=== PATIENT | female | born 1995 | race Caucasian/White ===

== ENCOUNTER 2018-08-10 22:22 | Emergency (ER) | payer OTHER ==
[2018-08-10] MEDS ORDERED: CLINDAMYCIN HCL 150 MG CAP ONE (22:52)
[2018-08-10] MEDS ORDERED: HYDROCODONE/APAP 7.5/325 MG TAB ONE (22:52)
--- NOTE | 2018-08-10 22:52 | EDPHYS ---
Physician Documentation [facility] Name: Lucille Prasad Age: 23 yrs Sex: Female : 1995 Arrival Date: 08/10/2018 Time: 22:25 Bed 26 Private MD: Phil Deutsch ED Physician Nagi Zaragoza HPI: 08/10 22:44 This 23 yrs old Female presents to ER via Ambulatory with complaints of pkl Toothache. 22:44 The patient presents with broken tooth/teeth, pain, swelling, noticed pus from gum pkl while brushing teeth. Onset: The symptoms/episode began/occurred 5 day(s) ago. 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 - Social history:: Smoking status: Patient uses tobacco products, smokes one-half pack cigarettes per day. - Ebola Screening: : No symptoms or risks identified at this time. ROS: 22:44 Eyes: Negative for injury, pain, redness, and discharge. pkl 22:44 ENT: Positive for dental pain, of the lower right first molar. 22:44 Neck: Negative for stiffness. 22:44 Cardiovascular: Negative for chest pain. 22:44 Respiratory: Negative for cough, shortness of breath. 22:44 Abdomen/GI: Negative for abdominal pain, nausea, vomiting, and diarrhea. 22:44 Back: Negative for acute changes. 22:44 : Negative for urinary symptoms. 22:44 MS/extremity: Negative for acute changes. 22:44 Skin: Negative for rash. 22:44 Neuro: Negative for altered mental status. Exam: 22:44 Head/Face: Normocephalic, atraumatic. Eyes: Pupils equal round and reactive to light, pkl extra-ocular motions intact. Lids and lashes normal. Conjunctiva and sclera are non-icteric and not injected. Cornea within normal limits. Periorbital areas with no swelling, redness, or edema. 22:44 ENT: Dental exam: abscess, that is mild, specifically in the lower right first molar, dental caries, that is moderate. 22:44 Neck: Exam negative for acute changes. 22:44 Chest/axilla: Exam negative for acute changes. 22:44 Cardiovascular: Rate: normal, Rhythm: regular. 22:44 Respiratory: the patient does not display signs of respiratory distress, Respirations: normal, Breath sounds: are clear throughout. 22:44 Abdomen/GI: Bowel sounds: normal, Palpation: abdomen is soft and non-tender, in all quadrants. 22:44 Back: Exam negative for acute changes. 22:44 : Exam negative for acute changes. 22:44 Musculoskeletal/extremity: Exam is negative for acute changes. 22:44 Skin: Exam negative for rash. 22:44 Neuro: Orientation: is normal, Mentation: is normal, Cranial nerves: grossly normal, Motor: is normal. Vital Signs: 22:40 BP 123 / 93; Pulse 74; Resp 18; Temp 98.9; Pulse Ox 100% ; Weight 66.68 kg; Height 5 kr2 ft. 7 in. (170.18 cm); Pain 9/10; 22:40 Body Mass Index 23.02 (66.68 kg, 170.18 cm) kr2 MDM: 22:39 Patient medically screened. pkl 22:44 Data reviewed: vital signs, nurses notes. pkl Administered Medications: 22:50 Drug: [place] (7.5 mg-325 mg) 1 tabs Route: PO; mg2 23:05 Follow up: Response: No adverse reaction; Medication administered at discharge. mg2 22:50 Drug: Clindamycin 300 mg Route: PO; mg2 23:05 Follow up: Response: No adverse reaction; Medication administered at discharge. mg2 Disposition: 08/10/18 22:49 Discharged to Home. Impression: Dental abscess. - Condition is Stable. - Prescriptions for Clindamycin HCl 300 mg Oral Capsule - take 1 capsule by ORAL route every 6 hours for 10 days; 28 capsule. Ultram 50 mg Oral Tablet - take 1 tablet by ORAL route every 8 hours As needed; 20 tablet. - Medication Reconciliation Form, Thank You Letter, Antibiotic Education, Prescription Opioid Use form. - Follow up: Private Physician; When: 2 - 3 days; Reason: Re-evaluation by your physician. - Problem is new. - Symptoms have improved. Signatures: Nagi Zaragoza MD MD pkl Mayelin Ambrosio, RN RN kr2 Montana Da Silva, RN RN mg2 Corrections: (The following items were deleted from the chart) 23:06 22:49 08/10/2018 22:49 Discharged to Home. Impression: Dental abscess. Condition is mg2 Stable. Forms are Medication Reconciliation Form, Thank You Letter, Antibiotic Education, Prescription Opioid Use. Follow up: Private Physician; When: 2 - 3 days; Reason: Re-evaluation by your physician. Problem is new. Symptoms have improved. pkl
--- NOTE | 2018-08-10 22:52 | ER ---
Nurse's Notes [facility] Name: Lucille Prasad Age: 23 yrs Sex: Female : 1995 Arrival Date: 08/10/2018 Time: 22:25 Bed 26 Private MD: Phil Deutsch Diagnosis: Dental abscess Presentation: 08/10 22:35 Presenting complaint: Patient states: "I broke my tooth about 5 days ago and now it has kr2 started to hurt really bad and when I brush I notice pus". Transition of care: patient was not received from another setting of care. Onset of symptoms was August 09, 2018. Risk Assessment: Do you want to hurt yourself or someone else? Patient reports no desire to harm self or others. Initial Sepsis Screen: Does the patient meet any 2 criteria? No. Patient's initial sepsis screen is negative. Does the patient have a suspected source of infection? Yes: Other: broken tooth. Care prior to arrival: None. 22:35 Method Of Arrival: Ambulatory kr 22:35 Acuity: RADHA 5 kr2 Triage Assessment: 22:41 General: Appears in no apparent distress. uncomfortable, well developed, Behavior is kr2 calm, cooperative. Pain: Complains of pain in lower right first molar Pain radiates to face Pain currently is 9 out of 10 on a pain scale. Quality of pain is described as aching, sharp, tender, Is continuous, Alleviated by nothing. Aggravated by eating, drinking. EENT: Reports pain in lower right first molar. 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 - Social history:: Smoking status: Patient uses tobacco products, smokes one-half pack cigarettes per day. - Ebola Screening: : No symptoms or risks identified at this time. Screenin:40 Abuse screen: Denies threats or abuse. Denies injuries from another. mg2 22:43 Abuse screen: Denies threats or abuse. Denies injuries from another. Nutritional kr2 screening: No deficits noted. Tuberculosis screening: No symptoms or risk factors identified. Fall Risk None identified. Assessment: 22:46 General: Appears uncomfortable, Behavior is calm, cooperative. Pain: Complains of pain mg2 in lower right first molar. Neuro: Level of Consciousness is awake, alert, obeys commands, Oriented to person, place, time, situation. Cardiovascular: No deficits noted. Respiratory: No deficits noted. GI: No deficits noted. : No deficits noted. EENT: Poor dentition noted. Dentures present. Derm: Skin is intact, is healthy with good turgor, Skin is pink, warm \\T\\ dry. normal. Musculoskeletal: No signs and/or symptoms reported regarding the musculoskeletal system. Vital Signs: 22:40 BP 123 / 93; Pulse 74; Resp 18; Temp 98.9; Pulse Ox 100% ; Weight 66.68 kg; Height 5 kr2 ft. 7 in. (170.18 cm); Pain 9/10; 22:40 Body Mass Index 23.02 (66.68 kg, 170.18 cm) kr2 ED Course: 22:25 Patient arrived in ED. es 22:25 Phil Deutsch MD is Private Physician. es 22:37 Triage completed. kr2 22:39 Nagi Zaragoza MD is Attending Physician. pkl 22:40 Montana Da Silva, ROJAS is Primary Nurse. mg2 22:43 Arm band placed on left wrist. kr2 22:43 Patient has correct armband on for positive identification. Bed in low position. Call kr2 light in reach. Side rails up X 1. Pulse ox on. NIBP on. Door closed. Head of bed elevated. 22:48 No provider procedures requiring assistance completed. Patient did not have IV access mg2 during this emergency room visit. Administered Medications: 22:50 Drug: [place] (7.5 mg-325 mg) 1 tabs Route: PO; mg2 23:05 Follow up: Response: No adverse reaction; Medication administered at discharge. mg2 22:50 Drug: Clindamycin 300 mg Route: PO; mg2 23:05 Follow up: Response: No adverse reaction; Medication administered at discharge. mg2 Outcome: 22:49 Discharge ordered by . pkl 23:05 Discharged to home ambulatory, with family. mg2 23:05 Condition: good 23:05 Discharge instructions given to patient, Instructed on discharge instructions, follow up and referral plans. medication usage, Demonstrated understanding of instructions, follow-up care, medications, Prescriptions given X 2. 23:06 Patient left the ED. mg2 Signatures: Nagi Zaragoza MD MD pkKatherin Stacy Karey RN RN kr2 Montana Da Silva RN RN mg2
== END 2018-08-10 23:06 | disposition home or self-care (01) ==
LOC: ER 22:22
DX: K04.7 Periapical abscess without sinus (principal); F32.9 Major depressive disorder, single episode, unspecified; F41.9 Anxiety disorder, unspecified; F17.210 Nicotine dependence, cigarettes, uncomplicated; Z79.899 Other long term (current) drug therapy; Z97.5 Presence of (intrauterine) contraceptive device
CPT/HCPCS: 99283

== ENCOUNTER 2018-12-04 09:15 | Observation (INO) | payer OTHER ==
--- OUTSIDE RECORDS SUMMARY | 2018-12-04 09:45 | XMS REPORT ---
:1995 [facility] Address [address] [place] [address] [address] [place] [address] Care Team Providers Name Role Phone Unavailable Unavailable Unavailable Problems This patient has no known problems. Allergies, Adverse Reactions, Alerts This patient has no known allergies or adverse reactions. Medications This patient has no known medications.
--- OUTSIDE RECORDS SUMMARY | 2018-12-04 09:45 | XMS REPORT | Continuity of Care Document ---
:1995 Author Organization [facility] Address [address] [place] [address] Phone Unavailable Care Team Providers Name Role Phone KRYS CARRASCO MD Primary Care Physician Insurance Providers Guarantor Lucille Rider Address [id number] [place] [address] Email [email or web address] Payer [facility] Policy Number [id number] Subscriber's Name Lucille Rider Relationship Self / Same As Patient Group Number [id number] Group Name NA Advance Directives Directive Response Recorded Date/Time Patient/Family Given Education Material R/T Y - 09/28/18...MA 09/28/18 12: 54pm Directives? Chief Complaint and Reason for Visit Chief Complaint General Complaint Reason for Visit Nausea & vomiting Diarrhea UTI (urinary tract infection) Problems Active ProblemsNo active problem information available. Past Problems Medical Problem Onset Date Status Diarrhea Unknown Acute Nausea & vomiting Unknown Acute UTI (urinary tract infection) Unknown Acute Medications No medication information available. Social History Smoking Status Start Date Stop Date Current every day smoker Hospital Discharge Instructions No hospital discharge instruction information available. Plan of Care Discharge Date 09/28/18 3:34pm Instructions/Education Provided Nausea and Vomiting, Adult Forms Provided Prescription Opioid Use Portal Welcome Letter Prescriptions See Medication Section Referrals KRYS CARRASCO MD Address: [address] [place] [address]. [address] [place], [place] [id number] Additional Instructions/Education Home RX Bharath ODT #10 REturn to ER as needed Follow-up with PCP Functional Status No functional status information available. Allergies, Adverse Reactions, Alerts No known allergies. Immunizations No immunization information available. Vital Signs Acute Vital Signs Vital Response Date/Time Blood Pressure 97/57 mm Hg 09/28/2018 3:34pm Pulse Pulse Rate (adult) 60 beats per minute (60 - 100) 09/28/2018 3:34pm Respiratory Rate 16 breaths per minute (10 - 24) 09/28/2018 3:34pm Temperature Source Oral 09/28/2018 3:34pm Height 5 ft 7 in 09/28/2018 12:05pm Weight 145 lb 09/28/2018 12:05pm Body Mass Index 22.7 kg/m^2 09/28/2018 12:05pm Results Laboratory Results Test Name Result Units Flags Reference Collection Result Comments Date/Time Date/Time White Blood Count 11.8 K/ul H 4.0-11.5 09/28/2018 09/28/2018 12:45pm 12:59pm Red Blood Count 4.78 M/ul 3.80-5.20 09/28/2018 09/28/2018 12:45pm 12:59pm Hemoglobin 15.1 g/dl 10.5-15.7 09/28/2018 09/28/2018 12:45pm 12:59pm Hematocrit 44.5 % 34.0-50.0 09/28/2018 09/28/2018 12:45pm 12:59pm Mean Corpuscular 93.1 fl 78-98 09/28/2018 09/28/2018 Volume 12:45pm 12:59pm Mean Corpuscular 31.6 pg 26.2-33.4 09/28/2018 09/28/2018 Hemoglobin 12:45pm 12:59pm Mean Corpuscular 34.0 g/dl 31.5-36.2 09/28/2018 09/28/2018 Hemoglobin Concent 12:45pm 12:59pm Red Cell 11.4 % L 11.5-15.5 09/28/2018 09/28/2018 Distribution Width 12:45pm 12:59pm Platelet Count 351 K/ul H 137-338 09/28/2018 09/28/2018 12:45pm 12:59pm Mean Platelet 7.3 fl L 8.4-11.8 09/28/2018 09/28/2018 Volume 12:45pm 12:59pm Neutrophils (%) 55.8 % 44.4-80.1 09/28/2018 09/28/2018 (Auto) 12:45pm 12:59pm Lymphocytes (%) 33.3 % 10.0-50.0 09/28/2018 09/28/2018 (Auto) 12:45pm 12:59pm Monocytes (%) 6.7 % 3.6-12.04 09/28/2018 09/28/2018 (Auto) 12:45pm 12:59pm Eosinophils (%) 3.3 % 0.0-5.41 09/28/2018 09/28/2018 (Auto) 12:45pm 12:59pm Basophils (%) 0.8 % H 0.0-0.79 09/28/2018 09/28/2018 (Auto) 12:45pm 12:59pm Urine Color LIGHT 09/28/2018 09/28/2018 YELLOW 2:22pm 2:46pm Urine Appearance CLEAR CLEAR 09/28/2018 09/28/2018 2:22pm 2:46pm Urine Glucose NEGATIVE NEGATIVE 09/28/2018 09/28/2018 2:22pm 2:46pm Urine Bilirubin NEGATIVE NEGATIVE 09/28/2018 09/28/2018 2:22pm 2:46pm Urine Ketones NEGATIVE NEGATIVE 09/28/2018 09/28/2018 2:22pm 2:46pm Urine Specific 1.005 1.003-1.03 09/28/2018 09/28/2018 [place] 0 2:22pm 2:46pm Urine Blood NEGATIVE NEGATIVE 09/28/2018 09/28/2018 2:22pm 2:46pm Urine pH 6.500 5-9 09/28/2018 09/28/2018 2:22pm 2:46pm Urine Protein NEGATIVE NEGATIVE 09/28/2018 09/28/2018 2:22pm 2:46pm Urine Urobilinogen NORMAL mg/dL 0.2-1.0 09/28/2018 09/28/2018 2:22pm 2:46pm Urine Nitrate NEGATIVE NEGATIVE 09/28/2018 09/28/2018 2:22pm 2:46pm Urine Leukocyte NEGATIVE NEGATIVE 09/28/2018 09/28/2018 [place] 2:22pm 2:46pm Urine RBC <1 /hpf 0-5 09/28/2018 09/28/2018 2:22pm 2:46pm Urine WBC <1 /hpf 0-5 09/28/2018 09/28/2018 2:22pm 2:46pm Urine Epithelial 1-5 /hpf 0-5 09/28/2018 09/28/2018 Cells 2:22pm 2:46pm Urine Bacteria FEW /hpf None 09/28/2018 09/28/2018 Detect 2:22pm 2:46pm Urine Casts None /lpf None 09/28/2018 09/28/2018 Detected Detect 2:22pm 2:46pm Urine Culture NO 09/28/2018 09/28/2018 Reflexed 2:22pm 2:46pm Urine Squamous 11-25 /lpf 0-5 09/28/2018 09/28/2018 Epithelial Cells 12:47pm 1:16pm Urine Trichomonas 5-9 /lpf H None Seen 09/28/2018 09/28/2018 12:47pm 1:16pm Random Glucose 87 mg/dL 74-106 09/28/2018 09/28/2018 12:45pm 1:11pm Blood Urea 13 mg/dL 6-20 09/28/2018 09/28/2018 Nitrogen 12:45pm 1:11pm Serum Osmolality 279 L 280-300 09/28/2018 09/28/2018 12:45pm 1:11pm Creatinine 0.8 mg/dL 0.50-0.90 09/28/2018 09/28/2018 12:45pm 1:11pm Glomerular > 60.00 09/28/2018 09/28/2018 GFR RESULTS ARE REPORTED IN mL/min/1.73m2. Filtration Rate 12:45pm 1:11pm Calc Normal GFR: >60mL/min Moderately decreased GFR: 30-59 mL/min Severely decreased GFR: 15-29 mL/min Kidney Failure (or Dialysis): <15 mL/min The calculated eGFR is not valid for patients younger than 18 years or older than 75 years. BUN/Creatinine 16.3 12-20 09/28/2018 09/28/2018 Ratio 12:45pm 1:11pm Sodium Level 140 mmol/L 135-145 09/28/2018 09/28/2018 12:45pm 1:11pm Potassium Level 4.1 mmol/L 3.5-5.2 09/28/2018 09/28/2018 12:45pm 1:11pm Chloride Level 106 mmol/L 98-108 09/28/2018 09/28/2018 12:45pm 1:11pm Carbon Dioxide 21 mmol/L 21-32 09/28/2018 09/28/2018 Level 12:45pm 1:11pm Anion Gap 17.1 mEq/L 12-20 09/28/2018 09/28/2018 12:45pm 1:11pm Calcium Level 9.4 mg/dL 8.6-10.0 09/28/2018 09/28/2018 12:45pm 1:11pm Total Protein 7.5 g/dL 6.6-8.7 09/28/2018 09/28/2018 12:45pm 1:11pm Albumin 4.8 g/dL 3.5-5.2 09/28/2018 09/28/2018 12:45pm 1:11pm Globulin 2.7 gm/dL 09/28/2018 09/28/2018 12:45pm 1:11pm Albumin/Globulin 1.8 >1.0 09/28/2018 09/28/2018 Ratio 12:45pm 1:11pm Total Bilirubin 0.3 mg/dL 0.0-1.2 09/28/2018 09/28/2018 12:45pm 1:11pm Aspartate Amino 12 U/L L 15-32 09/28/2018 09/28/2018 Transf (AST/SGOT) 12:45pm 1:11pm Alanine 7 U/L 0-33 09/28/2018 09/28/2018 Aminotransferase 12:45pm 1:11pm (ALT/SGPT) Lipase 52 U/L 13-60 09/28/2018 09/28/2018 12:45pm 1:11pm Total Alkaline 45 U/L 35-105 09/28/2018 09/28/2018 Phosphatase 12:45pm 1:11pm Urine HCG, NEGATIVE NEG 09/28/2018 09/28/2018 Qualitative 12:47pm 1:08pm If a negative result is obtained but is suspected, a new specimen should be collected after 48-72 hours and tested. If waiting 48 hrs is not medically advisable, the test result should be confirmed with at quantitative hCG assay. Procedures No procedure information available. Encounters Encounter Location Arrival/Admit Date Discharge/Depart Date Attending Provider Departed [place] 09/28/18 12:00pm 09/28/18 3:34pm DIANA JARAMILLO [facility] Recent Diagnosis
[2018-12-04] MEDS ORDERED: IPRATROPIUM BROM 0.5MG/2.5ML ONE (11:08)
[2018-12-04] MEDS ORDERED: KETOROLAC 30 MG/ML INJ ONE (11:08)
[2018-12-04] MEDS ORDERED: ALBUTEROL 2.5 MG/3 ML NEB SOL ONE (11:08)
[2018-12-04] MEDS ORDERED: CEFTRIAXONE/SWI 1gm 1 GM/10 ML SYR ONE ×2 (11:08→12:12)
[2018-12-04] MEDS ORDERED: NA CHLORIDE 0.9% 1,000 ML ONE (11:09)
[2018-12-04] MEDS ORDERED: DEXAMETHASONE 4 MG/ML VIAL ONE (11:09)
[2018-12-04 11:21] LABS: Absolute Lymphocytes (CBC) 1.4 K/uL (0.7-4.9); Absolute Monocytes 0.7 K/uL (0.1-1.3); Absolute Neutrophil 20.6 K/uL (1.8-8.0); Basophils % 0.3 % (0-1.3); Eosinophils % 0.1 % (0-4.4); Hematocrit 42.3 % (36.0-45.0); Lymphocytes % 6.3 % (15.3-44.8); MPV 8.7 fL (7.6-11.3); Monocytes % 3.3 % (3.3-12.3); RBC Red Blood Cell Count 4.59 M/uL (3.86-4.86)
[2018-12-04 11:44] LABS: ALT/SGPT 43 U/L (12-78); AST/SGOT 24 U/L (15-37); Albumin 3.9 g/dL (3.4-5.0); Alkaline Phosphatase 55 U/L (45-117); BUN Blood Urea Nitrogen 12 mg/dL (7-18); Bicarbonate 23 mmol/L (21-32); Bilirubin Total 0.2 mg/dL (0.2-1.0); Glucose Level 120 mg/dL (74-106); Potassium 4.4 mmol/L (3.5-5.1); Protein, Total 7.8 g/dL (6.4-8.2); Sodium Level 142 mmol/L (136-145)
[2018-12-04 12:11] LABS: Urine Blood NEGATIVE (NEG); Urine Glucose NEGATIVE (NEG); Urine Protein NEGATIVE (NEG); Urine Specific Gravity 1.015 (1.005-1.030)
[2018-12-04] MEDS ORDERED: NA CHLORIDE 0.9% 250 ML ONE (12:12)
[2018-12-04] MEDS ORDERED: AZITHROMYCIN 500 MG INJ IVPB ONE (12:12)
--- NOTE | 2018-12-04 12:22 | RAD REPORT ---
EXAM DESCRIPTION: RAD - Chest Pa And Lat (2 Views) - 12/04/2018 12:16 pm CLINICAL HISTORY: Cough;Congestion Chest pain. COMPARISON: No comparisons FINDINGS: The lungs are clear. The heart is normal in size. No displaced fractures. Mild thoracic de xtroscoliosis. IMPRESSION: Mild thoracic dextroscoliosis. No acute infiltrate seen.
--- NOTE | 2018-12-04 13:02 | RAD REPORT ---
EXAM DESCRIPTION: CT - Chest For Pe Angio - 12/04/2018 12:53 pm CLINICAL HISTORY: Chest pain, cough and congestion COMPARISON: Chest films same date TECHNIQUE: Dynamically enhanced 3 mm thick images of the chest were obtained during administration o f approximately 150mL Isovue 370 IV contrast. Coronal and oblique MIP reconstruction images were gene rated and reviewed. Exam utilizes a protocol to evaluate the pulmonary arterial tree. All CT scans are performed using dose optimization technique as appropriate and may include automated exposure control or mA/KV adjustment according to patient size. FINDINGS: No pulmonary emboli are identified. The aorta as imaged shows no acute or suspicious finding. No pericardial thickening or effusion. No infiltrate or mass in the lung parenchyma. No pleural effusion or pleural thickening. No mediastinal or hilar suspicious masses. No chest wall masses or abnormal axillary lymphadenopathy. IMPRESSION: No pulmonary emboli identified. No other significant or suspicious findings.
[2018-12-04 13:13] LABS: Blood Morphology Comment NOT SEEN (NOT SEEN); Platelet Estimate ADEQ
--- NOTE | 2018-12-04 13:29 | ER ---
Nurse's Notes [facility] Name: Lucille Prasad Age: 23 yrs Sex: Female : 1995 Arrival Date: 12/04/2018 Time: 09:17 Bed 16 Private MD: Diagnosis: Fever, unspecified;Cough;Elevated white blood cell count;Tachycardia, unspecified;Chest pain on breathing Presentation: 12/04 09:39 Presenting complaint: Intermittent sharp substernal chest pain that started this hb morning, painful cough, subjective fever, and sinus congestion x 4 days. Pt was seen at [place] ED yesterday, treated for bronchitis, has not filled prescriptions yet. Transition of care: patient was not received from another setting of care. Resp Distress? No respiratory distress is noted at this time. Onset of symptoms was December 01, 2018. Risk Assessment: Do you want to hurt yourself or someone else? Patient reports no desire to harm self or others. Care prior to arrival: None. 09:39 Method Of Arrival: Ambulatory hb 09:39 Acuity: RADHA 3 hb 11:34 Initial Sepsis Screen: Does the patient meet any 2 criteria? No. Patient's initial rv sepsis screen is negative. Does the patient have a suspected source of infection? No. Patient's initial sepsis screen is negative. Historical: - Allergies: 10:25 No Known Allergies; hb - PMHx: 10:25 Anxiety; Depression; hb - PSHx: 10:25 Ankle; hb - Immunization history:: Adult Immunizations up to date. - Social history:: Smoking status: unknown. - Family history:: not pertinent. - Ebola Screening: : Patient negative for fever greater than or equal to 101.5 degrees Fahrenheit, and additional compatible Ebola Virus Disease symptoms Patient denies exposure to infectious person Patient denies travel to an Ebola-affected area in the 21 days before illness onset. Screenin:34 Abuse screen: Denies threats or abuse. Denies injuries from another. Nutritional rv screening: No deficits noted. Tuberculosis screening: No symptoms or risk factors identified. Fall Risk None identified. Assessment: 11:33 General: Appears in no apparent distress. uncomfortable, Behavior is calm, cooperative. rv Pain: Complains of pain in chest. Neuro: Level of Consciousness is awake, alert, obeys commands, Oriented to person, place, time, situation. Cardiovascular: Capillary refill < 3 seconds Rhythm is regular. Respiratory: Airway is patent Breath sounds with wheezes bilaterally. GI: No signs and/or symptoms were reported involving the gastrointestinal system. : No signs and/or symptoms were reported regarding the genitourinary system. EENT: No signs and/or symptoms were reported regarding the EENT system. Derm: Skin is intact. Derm: No signs and/or symptoms reported regarding the dermatologic system. 12:47 Reassessment: Patient appears in no apparent distress at this time. Patient and/or rv family updated on plan of care and expected duration. Pain level reassessed. Patient is alert, oriented x 3, equal unlabored respirations, skin warm/dry/pink. 12:47 Reassessment: patient taken to CT scan. rv 13:47 Reassessment: Patient appears in no apparent distress at this time. Patient and/or rv family updated on plan of care and expected duration. Pain level reassessed. Patient is alert, oriented x 3, equal unlabored respirations, skin warm/dry/pink. Reassessment: patient came back from cT scan. 15:35 Reassessment: Report received from ROJAS Muller. aa5 15:35 Reassessment: Pt currently resting in bed with eyes closed, respirations even and aa5 unlabored, skin pink/warm/dry. . 16:00 Reassessment: Patient is alert, oriented x 3, equal unlabored respirations, skin aa5 warm/dry/pink. Vital Signs: 01:00 BP 106 / 62 RA; Pulse 94; Resp 18 S; Pulse Ox 100% on R/A; rv 09:41 BP 120 / 87; Pulse 68; Resp 16; Temp 98(O); Pulse Ox 100% on R/A; Pain 6/10; hb 10:00 BP 107 / 79 LA; Pulse 65; Resp 23 S; Pulse Ox 98% on R/A; rv 11:00 BP 105 / 68 LA; Pulse 81; Resp 20 S; Pulse Ox 100% on R/A; rv 12:00 BP 107 / 56 LA; Pulse 112; Resp 18 S; Pulse Ox 100% on R/A; rv 13:57 BP 91 / 49 RA; Pulse 116; Resp 23 S; Temp 98.6(O); Pulse Ox 99% on R/A; rv 15:35 BP 98 / 51; Pulse 110; Resp 20 S; Temp 98.6(O); Pulse Ox 98% on R/A; aa5 ED Course: 09:17 Patient arrived in ED. as 09:34 Radha France, RN is Primary Nurse. hb 09:41 Triage completed. hb 09:43 Arm band placed on. hb 09:45 Sin Melgoza MD is Attending Physician. marcos 11:00 Inserted saline lock: 20 gauge in right antecubital area, using aseptic technique. rv Blood collected. 11:03 EKG done, by rv repair technician. reviewed by Sin Melgoaz MD. at1 11:35 Patient has correct armband on for positive identification. Placed in gown. Bed in low rv position. Call light in reach. Side rails up X 1. Adult w/ patient. Pulse ox on. NIBP on. 12:07 Patient moved to radiology via wheelchair. jb2 12:15 X-ray completed. Patient tolerated procedure well. Patient moved back from radiology. jb2 12:17 Chest Pa And Lat (2 Views) XRAY In Process Unspecified. EDMS 12:55 CT Chest For PE Angio In Process Unspecified. EDMS 14:06 Silke Garrison MD is Hospitalizing Provider. marcos 16:00 No provider procedures requiring assistance completed. Patient admitted, IV remains in aa5 place. Administered Medications: 11:00 Drug: Albuterol - atroVENT (3:1) (2.5 mg - 0.5 mg) 3 ml Route: Nebulizer; rv 12:49 Follow up: Response: Marked relief of symptoms rv 11:10 Drug: TORadol 30 mg Route: IVP; Site: right antecubital; rv 12:49 Follow up: Response: Pain is decreased rv 11:10 Drug: Decadron - Dexamethasone 10 mg Route: IVP; Site: right antecubital; rv 12:49 Follow up: Response: No adverse reaction rv 11:10 Drug: NS 0.9% 1000 ml Route: IV; Rate: 1 bolus; Site: right antecubital; rv 12:48 Follow up: IV Status: Completed infusion rv 11:20 Drug: Rocephin - (cefTRIAXone) 1 grams Route: IVPB; Infused Over: 30 mins; Site: right rv antecubital; 12:49 Follow up: IV Status: Completed infusion rv 12:02 Drug: Rocephin - (cefTRIAXone) 1 grams Route: IVPB; Infused Over: 30 mins; Site: right rv antecubital; 12:48 Follow up: IV Status: Completed infusion rv 12:08 Drug: Zithromax 500 mg Route: IVPB; Infused Over: 1 hrs; Site: right antecubital; rv 14:09 Follow up: IV Status: Completed infusion rv 14:10 Drug: NS 0.9% 1000 ml Route: IV; Rate: 2 bolus; Site: right antecubital; rv 14:20 Drug: Tamiflu 75 mg Route: PO; rv Outcome: 13:29 Discharge ordered by . marcos 14:07 Decision to Hospitalize by Provider. [facility] 16:00 Admitted to Tele accompanied by rachel, family with patient, via wheelchair, with chart, aa5 Report called to ROJAS Slater 16:00 Condition: stable 16:00 Instructed on the need for admit, Demonstrated understanding of instructions. 16:05 Patient left the ED. aa5 Signatures: Dispatcher [employer] EDSin Moreau MD MD cha Buechter, Jesse jb2 Mimi Gaitan Audri, RN RN aa5 Alissa Scott, hvac services professional EKG Tat1 Radha France RN RN Renzo Maya RN RN rv Corrections: (The following items were deleted from the chart) 16:19 16:17 Patient left the ED. aa5 aa5
--- NOTE | 2018-12-04 13:29 | EDPHYS ---
Physician Documentation [facility] Name: Lucille Prasad Age: 23 yrs Sex: Female : 1995 Arrival Date: 12/04/2018 Time: 09:17 Bed 16 Private MD: ED Physician Sin Melgoza HPI: 12/04 10:44 This 23 yrs old Female presents to ER via Ambulatory with complaints of marcos Cough, Congestion, Dizziness. 10:44 The patient or guardian reports cough, described as moderate, difficulty breathing, flu marcos symptoms, arthralgias, low-grade fever, myalgias. Onset: The symptoms/episode began/occurred 3 day(s) ago. Severity of symptoms: At their worst the symptoms were mild, moderate, in the emergency department the symptoms are unchanged. Modifying factors: The symptoms are alleviated by cool environment, the symptoms are aggravated by exertion. Associated signs and symptoms: Pertinent positives: fever, rhinorrhea, sore throat. The patient has experienced similar episodes in the past, several times. Historical: - Allergies: 10:25 No Known Allergies; hb - PMHx: 10:25 Anxiety; Depression; hb - PSHx: 10:25 Ankle; hb - Immunization history:: Adult Immunizations up to date. - Social history:: Smoking status: unknown. - Family history:: not pertinent. - Ebola Screening: : Patient negative for fever greater than or equal to 101.5 degrees Fahrenheit, and additional compatible Ebola Virus Disease symptoms Patient denies exposure to infectious person Patient denies travel to an Ebola-affected area in the 21 days before illness onset. ROS: 10:44 Constitutional: Negative for fever, chills, and weight loss, Eyes: Negative for injury, marcos pain, redness, and discharge, ENT: Negative for injury, pain, and discharge, Neck: Negative for injury, pain, and swelling, Cardiovascular: Negative for chest pain, palpitations, and edema, Abdomen/GI: Negative for abdominal pain, nausea, vomiting, diarrhea, and constipation, Back: Negative for injury and pain, : Negative for injury, bleeding, discharge, and swelling, MS/Extremity: Negative for injury and deformity, Skin: Negative for injury, rash, and discoloration, Neuro: Negative for headache, weakness, numbness, tingling, and seizure, Psych: Negative for depression, anxiety, suicide ideation, homicidal ideation, and hallucinations, Allergy/Immunology: Negative for hives, rash, and allergies, Endocrine: Negative for neck swelling, polydipsia, polyuria, polyphagia, and marked weight changes, Hematologic/Lymphatic: Negative for swollen nodes, abnormal bleeding, and unusual bruising. 10:44 Respiratory: Positive for cough, shortness of breath, on exertion. Exam: 10:44 Constitutional: This is a well developed, well nourished patient who is awake, alert, marcos and in no acute distress. Head/Face: Normocephalic, atraumatic. Eyes: Pupils equal round and reactive to light, extra-ocular motions intact. Lids and lashes normal. Conjunctiva and sclera are non-icteric and not injected. Cornea within normal limits. Periorbital areas with no swelling, redness, or edema. ENT: Nares patent. No nasal discharge, no septal abnormalities noted. Tympanic membranes are normal and external auditory canals are clear. Oropharynx with no redness, swelling, or masses, exudates, or evidence of obstruction, uvula midline. Mucous membranes moist. Neck: Trachea midline, no thyromegaly or masses palpated, and no cervical lymphadenopathy. Supple, full range of motion without nuchal rigidity, or vertebral point tenderness. No Meningismus. Chest/axilla: Normal chest wall appearance and motion. Nontender with no deformity. No lesions are appreciated. Cardiovascular: Regular rate and rhythm with a normal S1 and S2. No gallops, murmurs, or rubs. Normal PMI, no JVD. No pulse deficits. Abdomen/GI: Soft, non-tender, with normal bowel sounds. No distension or tympany. No guarding or rebound. No evidence of tenderness throughout. Back: No spinal tenderness. No costovertebral tenderness. Full range of motion. Skin: Warm, dry with normal turgor. Normal color with no rashes, no lesions, and no evidence of cellulitis. MS/ Extremity: Pulses equal, no cyanosis. Neurovascular intact. Full, normal range of motion. Neuro: Awake and alert, GCS 15, oriented to person, place, time, and situation. Cranial nerves II-XII grossly intact. Motor strength 5/5 in all extremities. Sensory grossly intact. Cerebellar exam normal. Normal gait. Psych: Awake, alert, with orientation to person, place and time. Behavior, mood, and affect are within normal limits. 10:44 Respiratory: mild respiratory distress is noted, Respirations: normal, Breath sounds: decreased breath sounds, rhonchi, wheezing: expiratory 11:03 Musculoskeletal/extremity: DVT Exam: No signs of deep vein thrombosis. no pain, no marcos swelling, no tenderness, negative Homans' sign noted on exam, no appreciated bluish discoloration, no erythema, no increased warmth. Vital Signs: 01:00 BP 106 / 62 RA; Pulse 94; Resp 18 S; Pulse Ox 100% on R/A; rv 09:41 BP 120 / 87; Pulse 68; Resp 16; Temp 98(O); Pulse Ox 100% on R/A; Pain 6/10; hb 10:00 BP 107 / 79 LA; Pulse 65; Resp 23 S; Pulse Ox 98% on R/A; rv 11:00 BP 105 / 68 LA; Pulse 81; Resp 20 S; Pulse Ox 100% on R/A; rv 12:00 BP 107 / 56 LA; Pulse 112; Resp 18 S; Pulse Ox 100% on R/A; rv 13:57 BP 91 / 49 RA; Pulse 116; Resp 23 S; Temp 98.6(O); Pulse Ox 99% on R/A; rv 15:35 BP 98 / 51; Pulse 110; Resp 20 S; Temp 98.6(O); Pulse Ox 98% on R/A; aa5 MDM: 09:45 Patient medically screened. [facility] 11:03 Data reviewed: vital signs, nurses notes, lab test result(s), EKG, radiologic studies, [facility] plain films. 12/04 10:44 Order name: CBC with Diff; Complete Time: 13:[address] [facility] 12/04 10:44 Order name: Comprehensive Metabolic Panel; Complete Time: 11:[address] [facility] 12/04 10:44 Order name: Influenza Screen (a \T\ B); Complete Time: 13:00 marcos 12/04 11:26 Order name: Manual Differential; Complete Time: 13:28 EDMS 12/04 12:00 Order name: Urine Dipstick--Ancillary (enter results); Complete Time: 13:00 bd 12/04 14:04 Order name: Lipase [facility] 12/04 10:44 Order name: Chest Pa And Lat (2 Views) XRAY; Complete Time: 13:[address] [facility] 12/04 12:23 Order name: CT Chest For PE Angio; Complete Time: 13:[address] [facility] 12/04 14:04 Order name: Blood Culture Adult (2) [facility] 12/04 14:04 Order name: Procalcitonin [facility] 12/04 10:24 Order name: EKG; Complete Time: 10:25 12/04 10:24 Order name: EKG - Nurse/Tech; Complete Time: 11:21 12/04 10:44 Order name: Urine Dipstick-Ancillary (obtain specimen); Complete Time: 12:[address] [facility] 12/04 10:44 Order name: Urine Test (obtain specimen); Complete Time: 12:[address] [facility] 12/04 12:24 Order name: Diet Regular; Complete Time: 12:24 bd Administered Medications: 11:00 Drug: Albuterol - atroVENT (3:1) (2.5 mg - 0.5 mg) 3 ml Route: Nebulizer; rv 12:49 Follow up: Response: Marked relief of symptoms rv 11:10 Drug: TORadol 30 mg Route: IVP; Site: right antecubital; rv 12:49 Follow up: Response: Pain is decreased rv 11:10 Drug: Decadron - Dexamethasone 10 mg Route: IVP; Site: right antecubital; rv 12:49 Follow up: Response: No adverse reaction rv 11:10 Drug: NS 0.9% 1000 ml Route: IV; Rate: 1 bolus; Site: right antecubital; rv 12:48 Follow up: IV Status: Completed infusion rv 11:20 Drug: Rocephin - (cefTRIAXone) 1 grams Route: IVPB; Infused Over: 30 mins; Site: right rv antecubital; 12:49 Follow up: IV Status: Completed infusion rv 12:02 Drug: Rocephin - (cefTRIAXone) 1 grams Route: IVPB; Infused Over: 30 mins; Site: right rv antecubital; 12:48 Follow up: IV Status: Completed infusion rv 12:08 Drug: Zithromax 500 mg Route: IVPB; Infused Over: 1 hrs; Site: right antecubital; rv 14:09 Follow up: IV Status: Completed infusion rv 14:10 Drug: NS 0.9% 1000 ml Route: IV; Rate: 2 bolus; Site: right antecubital; rv 14:20 Drug: Tamiflu 75 mg Route: PO; rv Disposition: 12/04/18 14:07 Hospitalization ordered by Silke Garrison for Inpatient Admission. Preliminary diagnosis are Fever, unspecified, Cough, Elevated white blood cell count, Tachycardia, unspecified, Chest pain on breathing. - Bed requested for Telemetry/MedSurg (Inpatient). - Status is Inpatient Admission. aa5 - Condition is Stable. - Problem is new. - Symptoms have improved. UTI on Admission? No Signatures: Dispatcher [employer] Lisa Gonzalez RN RN Sin Burton MD MD cha Calderon, Audri RN RN aa5 Radha France RN RN Renzo Maya RN RN rv Corrections: (The following items were deleted from the chart) 14:05 13:29 12/04/2018 13:29 Discharged to Home. Impression: Bronchitis, not specified as marcos acute or chronic; Tobacco abuse counseling; Tobacco use; Pneumonia due to other specified bacteria; Elevated white blood cell count. Condition is Stable. Discharge Instructions: Acute Bronchitis, Adult, How to Use an Inhaler, Steps to Quit Smoking, Smoking Hazards, Upper Respiratory Infection, Adult, Acute Bronchitis, [id number], Upper Respiratory Infection, Adult, [id number], Steps to Quit Smoking, [id number]. Prescriptions for Medrol (Jorge) 4 mg Oral Tablets, Dose Pack - take 1 tablet by ORAL route as directed - follow package instructions; 1 packet, Albuterol Sulfate 90 mcg/actuation - inhale 1-2 puff by INHALATION route every 4-6 hours; 1 Inhaler, Zithromax 500 mg Oral Tablet - take 1 tablet by ORAL route once daily for 5 days; 5 tablet. and Forms are Medication Reconciliation Form, Thank You Letter, Antibiotic Education, Prescription Opioid Use. Follow up: Private Physician; When: 2 - 3 days; Reason: Recheck today's complaints, Continuance of care, Re-evaluation by your physician. Problem is new. Symptoms have improved. [facility] 14:52 14:07 Hospitalization Ordered by Silke Garrison MD for Inpatient Admission. Preliminary dw diagnosis is Fever, unspecified; Cough; Elevated white blood cell count; Tachycardia, unspecified; Chest pain on breathing. Bed requested for Telemetry/MedSurg (Inpatient). Status is Inpatient Admission. Condition is Stable. Problem is new. Symptoms have improved. UTI on Admission? No. marcos 16:17 14:52 12/04/2018 14:07 Hospitalization Ordered by Silke Garrison MD for Inpatient aa5 Admission. Preliminary diagnosis is Fever, unspecified; Cough; Elevated white blood cell count; Tachycardia, unspecified; Chest pain on breathing. Bed requested for Telemetry/MedSurg (Inpatient). Status is Inpatient Admission. Condition is Stable. Problem is new. Symptoms have improved. UTI on Admission? No. dw
[2018-12-04] MEDS ORDERED: OSELTAMIVIR 75 MG CAP ONE (14:24)
[2018-12-04] MEDS ORDERED: ONDANSETRON 4 MG/2 ML VIAL IV PRN (17:23)
--- NOTE | 2018-12-04 17:37 | P.HP ---
Certification for Inpatient Patient admitted to: Observation With expected LOS: <2 Midnights Patient will require the following post-hospital care: None Practitioner: I am a practitioner with admitting privileges, knowledge of patient current condition, hospital course, and medical plan of care. Services: Services provided to patient in accordance with Admission requirements found in Title 42 Section 412.3 of the Code of Federal Regulations Patient History Date of Service: 12/04/18 Primary Care Provider: Dr. galol Reason for admission: Shortness of breath History of Present Illness: This is a 23-year-old female with significant past medical history of manic depression who presented to the ED complaining of having shortness of breath. Patient stated that yesterday she was an angle to the ER and was diagnosed with bronchitis and was discharged home with prescription of Tessalon Perles, amoxicillin, steroids. In the ER she was given a neb treatment and steroid injection as well. Patient stated that she did not fill up her prescription. Patient stated that at night after being discharged from the ER started having shortness of breath that was progressively getting worse and the she decided to come to the ER for further workup. Patient also stated that she has been having subjective fever chills and chest tightness that she had noticed last night. The patient also smokes about 1 pack of cigarettes everyday. Allergies No Known Allergies Allergy (Unverified 12/04/15 01:17) Review of Systems 10-point ROS is otherwise unremarkable Physical Examination - Vital Signs Temperature: 98 F Blood Pressure: 105/68 Pulse: 81 Respirations: 20 - Physical Exam General: Alert, In no apparent distress HEENT: Atraumatic, PERRLA, Mucous membr. moist/pink, EOMI, Sclerae nonicteric Neck: Supple, 2+ carotid pulse no bruit, No LAD, Without JVD or thyroid abnormality Respiratory: Clear to auscultation bilaterally, Normal air movement Cardiovascular: Regular rate/rhythm, Normal S1 S2 Gastrointestinal: Normal bowel sounds, No tenderness Musculoskeletal: No tenderness Integumentary: No rashes Neurological: Normal gait, Normal speech, Normal strength at 5/5 x4 extr, Normal tone, Normal affect Lymphatics: No axilla or inguinal lymphadenopathy - Studies Laboratory Data (last 24 hrs) 12/04/18 14:20: Lipase 101 12/04/18 11:00: Sodium 142, Potassium 4.4, BUN 12, Creatinine 0.77, Glucose 120 H, Total Bilirubin 0.2, AST 24, ALT 43, Alkaline Phosphatase 55 12/04/18 11:00: WBC 22.9 H*, Hgb 14.3, Hct 42.3, Plt Count 380 Microbiology Data (last 24 hrs): 12/04/18 11:15 Nasopharnyx Influenza Type A Antigen Screen - Final 12/04/18 11:15 Nasopharnyx Influenza Type B Antigen Screen - Final Assessment and Plan - Problems (Diagnosis) (1) Acute upper respiratory infection Current Visit: Yes Status: Acute Plan: Acute upper respiratory infection most likely secondary to viral illness -oxygen as needed -Flonase, Mucinex, Tessalon Perles (2) Leukocytosis Current Visit: Yes Status: Acute Plan: Leukocytosis most likely secondary to steroid use yesterday in the ER -will continue to monitor closely here in the hospital Qualifiers: Leukocytosis type: unspecified Qualified Code(s): D72.829 - Elevated white blood cell count, unspecified (3) Manic depression Current Visit: Yes Status: Chronic Plan: Restart home medication Qualifiers: Active/Remission status: currently active Current bipolar episode type: depressed Current episode severity: mild Qualified Code(s): F31.31 - Bipolar disorder, current episode depressed, mild (4) Tobacco abuse Current Visit: Yes Status: Acute Plan: Smokes about 1 pack a day. Smoking cessation provided more than 10 min Discharge Plan: Home Plan to discharge in: 24 Hours - Advance Directives Does patient have a Living Will: No Does patient have a Durable POA for Healthcare: No - Code Status/Comfort Care Code Status Assessed: Yes Critical Care: No
[2018-12-04] MEDS ORDERED: BENZONATATE 100 MG CAP PO PRN (17:38)
[2018-12-04] MEDS: NA CHLORIDE 0.9% 1,000 ML IV SCH (18:19)
[2018-12-04] MEDS: NICOTINE 14 MG/PAT TD SCH (18:20)
[2018-12-04] MEDS ORDERED: ACETAMINOPHEN 500 MG TAB PO PRN (18:30)
[2018-12-04 18:31] VITALS: BMI 23.5
[2018-12-04] MEDS ORDERED: TOPIRAMATE 25 MG TAB PO SCH (21:00)
[2018-12-04] MEDS: FLUTICASONE 50MCG NASAL SPRAY NAS SCH (21:04)
[2018-12-04] MEDS: GUAIFENESIN 600 MG SA TAB PO SCH (21:04)
[2018-12-04 21:29] LABS: Urine Appearance CLEAR; Urine Bilirubin NEGATIVE (NEG); Urine Blood 1+ (NEG); Urine Color YELLOW; Urine Glucose TRACE (NEG); Urine Protein NEGATIVE (NEG); Urine Urobilinogen 0.2 mg/dL (0.2-1.0); Urine pH 6.5 (5.0-7.0)
[2018-12-04 21:38] LABS: Urine Microscopic Reflex ORDER UMIC
[2018-12-04 21:40] LABS: Urine Bacteria <20 /HPF (<20); Urine Culture Reflex Order NOT NEEDED; Urine RBC <5 /HPF (NONE SEEN); Urine Trichomonas PRESENT (NONE SEEN)
[2018-12-05 00:11] VITALS: O2SAT 99
[2018-12-05] MEDS: NA CHLORIDE 0.9% 1,000 ML IV SCH (02:45)
[2018-12-05 06:05] LABS: Absolute Lymphocytes (CBC) 2.4 K/uL (0.7-4.9); Absolute Monocytes 0.9 K/uL (0.1-1.3); Absolute Neutrophil 12.4 K/uL (1.8-8.0); Hematocrit 33.7 % (36.0-45.0); Lymphocytes % 15.3 % (15.3-44.8); MPV 8.6 fL (7.6-11.3); Monocytes % 5.7 % (3.3-12.3); RBC Red Blood Cell Count 3.65 M/uL (3.86-4.86)
[2018-12-05 06:18] LABS: ALT/SGPT 27 U/L (12-78); AST/SGOT 9 U/L (15-37); Albumin 3.1 g/dL (3.4-5.0); Alkaline Phosphatase 34 U/L (45-117); BUN Blood Urea Nitrogen 10 mg/dL (7-18); Bicarbonate 20 mmol/L (21-32); Bilirubin Total 0.2 mg/dL (0.2-1.0); Glucose Level 117 mg/dL (74-106); Phosphorus 2.9 mg/dL (2.5-4.9); Potassium 3.9 mmol/L (3.5-5.1); Protein, Total 5.7 g/dL (6.4-8.2); Sodium Level 145 mmol/L (136-145)
[2018-12-05] MEDS: FLUTICASONE 50MCG NASAL SPRAY NAS SCH (08:20)
[2018-12-05] MEDS: GUAIFENESIN 600 MG SA TAB PO SCH (08:21)
[2018-12-05] MEDS: NICOTINE 14 MG/PAT TD SCH (08:22)
[2018-12-05] MEDS ORDERED: AZITHROMYCIN IV 500 MG in NA CHLORIDE 0.9% 250 ML IVPB SCH (09:00)
[2018-12-05] MEDS ORDERED: ESCITALOPRAM 10 MG PO SCH (09:00)
[2018-12-05] MEDS ORDERED: POTASSIUM CL SA 10 MEQ TAB PO ONE (09:00)
[2018-12-05] MEDS ORDERED: ESCITALOPRAM 20 MG TAB PO SCH (09:00)
[2018-12-05] MEDS ORDERED: CEFTRIAXONE/SWI 1gm 1 GM/10 ML SYR IV SCH (09:00)
[2018-12-05] MEDS ORDERED: CEFTRIAXONE 1 GM/NS 50 ML 1 GM/50 ML BAG IV SCH (09:00)
--- NOTE | 2018-12-05 10:36 | EKG ---
Test Date: 2018-12-04 Test Time: 10:40:10 Belt Knife Feeder: THALIA MEASUREMENT RESULTS: Intervals: Rate: 54 NV: 194 QRSD: 80 QT: 436 QTc: 413 Keo: P: 36 NV: 194 QRS: 83 T: 70 INTERPRETIVE STATEMENTS: Sinus bradycardia with marked sinus arrhythmia Otherwise normal ECG No previous ECG available for comparison Electronically Signed On 12-04-18 17:49:17 CDT by Jin Ovalle
[2018-12-05 12:33] LABS: Barbiturates NEGATIVE (NEGATIVE); Benzodiazepines NEGATIVE (NEGATIVE); Cocaine NEGATIVE (NEGATIVE); METHAMPHETAM NEGATIVE (NEGATIVE); Methadone NEGATIVE (NEGATIVE); Opiates NEGATIVE (NEGATIVE); Phencyclidine NEGATIVE (NEGATIVE); THC Cannibis NEGATIVE (NEGATIVE)
[2018-12-05 15:49] VITALS: BP 103/62; TEMP 98.3
--- NOTE | 2018-12-05 15:53 | P.DS ---
Admission Date: 12/04/18 Discharge Date: 12/05/18 Primary Care Provider: Dr. deutsch Disposition: ROUTINE DISCHARGE Discharge Condition: GOOD Reason for Admission: Shortness of breath - Problems (1) Acute upper respiratory infection Status: Acute (2) Leukocytosis Status: Acute Qualifiers: Leukocytosis type: unspecified Qualified Code(s): D72.829 - Elevated white blood cell count, unspecified (3) Manic depression Status: Chronic Qualifiers: Active/Remission status: currently active Current bipolar episode type: depressed Current episode severity: mild Qualified Code(s): F31.31 - Bipolar disorder, current episode depressed, mild (4) Tobacco abuse Status: Acute Brief History of Present Illness: This is a 23-year-old female with significant past medical history of manic depression who presented to the ED complaining of having shortness of breath. Patient stated that yesterday she was an angle to the ER and was diagnosed with bronchitis and was discharged home with prescription of Tessalon Perles, amoxicillin, steroids. In the ER she was given a neb treatment and steroid injection as well. Patient stated that she did not fill up her prescription. Patient stated that at night after being discharged from the ER started having shortness of breath that was progressively getting worse and the she decided to come to the ER for further workup. Patient also stated that she has been having subjective fever chills and chest tightness that she had noticed last night. The patient also smokes about 1 pack of cigarettes everyday. Hospital Course: Overall during the hospital stay patient remained stable Patient was initially admitted to the hospital for upper respiratory infection along with leukocytosis. Patient was found to have a urinary tract infection with sexually transmitted disease trichomoniasis. Patient was given antibiotics while here in the hospital was given IV azithromycin and ceftriaxone. The patient had marked improvement in her symptoms. Patient was given Flonase which helps with the upper respiratory infection along with nebulizer treatment. Patient then was discharged home under stable condition was asked to follow up their primary care provider. Patient was educated extensively on the sexually transmitted disease and treatment with Flagyl. Patient demonstrated understanding and stated that her partner will be going to the doctor's office today to get treated. Patient and was discharged home under stable condition again was asked to follow up with primary care doctor Vital Signs/Physical Exam: Temp Pulse Resp BP Pulse Ox 98.3 F 88 20 103/62 99 12/05/18 12:00 12/05/18 12:00 12/05/18 12:00 12/05/18 12:00 12/05/18 12:00 General: Alert, In no apparent distress HEENT: Atraumatic, PERRLA, EOMI Neck: Supple, JVD not distended Respiratory: Clear to auscultation bilaterally, Normal air movement Cardiovascular: Regular rate/rhythm, Normal S1 S2 Gastrointestinal: Normal bowel sounds, No tenderness Musculoskeletal: No tenderness Integumentary: No rashes Neurological: Normal speech, Normal tone, Normal affect Lymphatics: No axilla or inguinal lymphadenopathy Laboratory Data at Discharge: WBC 15.7 K/uL (4.3-10.9) H D 12/05/18 05:38 Hgb 11.6 g/dL (12.0-15.0) L D 12/05/18 05:38 Hct 33.7 % (36.0-45.0) L D 12/05/18 05:38 Plt Count 325 K/uL (152-406) 12/05/18 05:38 Sodium 145 mmol/L (136-145) 12/05/18 05:38 Potassium 3.9 mmol/L (3.5-5.1) 12/05/18 05:38 BUN 10 mg/dL (7-18) 12/05/18 05:38 Creatinine 0.56 mg/dL (0.55-1.3) 12/05/18 05:38 Glucose 117 mg/dL (74-106) H 12/05/18 05:38 Phosphorus 2.9 mg/dL (2.5-4.9) 12/05/18 05:38 Magnesium 2.0 mg/dL (1.8-2.4) 12/05/18 05:38 Total Bilirubin 0.2 mg/dL (0.2-1.0) 12/05/18 05:38 AST 9 U/L (15-37) L 12/05/18 05:38 ALT 27 U/L (12-78) 12/05/18 05:38 Alkaline Phosphatase 34 U/L (45-117) L 12/05/18 05:38 Lipase 101 U/L (73-393) 12/04/18 14:20 Home Medications: Escitalopram Oxalate [Lexapro] 5 mg PO DAILY 12/04/18 Escitalopram [Lexapro*] 0.5 tab PO DAILY 12/04/18 Topiramate 2 tab PO BEDTIME 12/04/18 clonazePAM [Clonazepam] 1 tab PO BID 12/04/18 Albuterol Sulfate [Proair Hfa] 8.5 gm IH Q6H PRN #1 hfa.aer.ad 12/05/18 Budesonide/Formoterol Fumarate [Symbicort 80-4.5 Mcg Inhaler] 2 puff IH BID #1 hfa.aer.ad 12/05/18 Fluticasone Propionate [Flonase Allergy Relief] 9.9 ml NS BID PRN #1 spray.susp 12/05/18 metroNIDAZOLE [Flagyl] 500 mg PO BID #14 tablet 12/05/18 New Medications: Albuterol Sulfate [Proair Hfa] 8.5 gm IH Q6H PRN #1 hfa.aer.ad PRN Reason: Wheezing Budesonide/Formoterol Fumarate [Symbicort 80-4.5 Mcg Inhaler] 2 puff IH BID #1 hfa.aer.ad Fluticasone Propionate [Flonase Allergy Relief] 9.9 ml NS BID PRN #1 spray.susp PRN Reason: Nasal Congestion metroNIDAZOLE [Flagyl] 500 mg PO BID #14 tablet Patient Discharge Instructions: Please f.u with PCP and Pulmonology in 1 to 2 week post discharge Diet: Regular Activity: Ad lindsay Followup: Iván Katz MD [ACTIVE - CAN ADMIT] - Phil Deutsch MD [Primary Care Provider] -
== END 2018-12-05 15:00 | disposition home or self-care (01) ==
LOC: ER 09:15 → ERHOLD 14:37 → 2ND 15:56
PROVIDERS: ADMIT Family Medicine; ATTEND Family Medicine
DX: J06.9 Acute upper respiratory infection, unspecified (principal); D72.829 Elevated white blood cell count, unspecified; F32.9 Major depressive disorder, single episode, unspecified; F17.210 Nicotine dependence, cigarettes, uncomplicated; N39.0 Urinary tract infection, site not specified; A59.9 Trichomoniasis, unspecified
CPT/HCPCS: 36415; 71046; 71275; 80053; 80307; 81003; 81015; 83605; 83690; 83735; 84100; 84145; 85025; 87040; 87086; 87088; 87804; 93005; 94640; 96365; 96366; 96375; 99285; G0378; J0456; J0696; J7030; Q9967

== ENCOUNTER 2019-04-13 14:27 | Emergency (ER) | payer OTHER ==
--- OUTSIDE RECORDS SUMMARY | 2019-04-13 14:29 | XMS REPORT ---
:1995 [facility] Address [address] [place] [address] Dr. Bermudez [address] [place] [address] Care Team Providers Name Role Phone Unavailable Unavailable Unavailable Problems This patient has no known problems. Allergies, Adverse Reactions, Alerts This patient has no known allergies or adverse reactions. Medications This patient has no known medications.
[2019-04-13 15:06] LABS: Urine Blood NEGATIVE (NEG); Urine Glucose NEGATIVE (NEG); Urine Protein NEGATIVE (NEG); Urine Specific Gravity <1.005 (1.005-1.030); Urine pH 5.5 (5.0-7.0)
[2019-04-13 15:40] LABS: Absolute Lymphocytes (CBC) 2.5 K/uL (0.7-4.9); Basophils % 1.4 % (0-1.3); Hematocrit 41.4 % (36.0-45.0); Lymphocytes % 30.5 % (15.3-44.8); MPV 8.9 fL (7.6-11.3); Monocytes % 7.2 % (3.3-12.3); RBC Red Blood Cell Count 4.43 M/uL (3.86-4.86)
[2019-04-13 15:47] LABS: Potassium 3.9 mmol/L (3.5-5.1)
--- NOTE | 2019-04-13 16:47 | RAD REPORT ---
EXAM DESCRIPTION: CTAbdomen Pelvis W Contrast - 04/13/2019 4:34 pm CLINICAL HISTORY: Abdominal pain. ABD PAIN COMPARISON: Chest For Pe Angio dated 12/04/2018; Chest Pa And Lat (2 Views) dated 12/04/2018 TECHNIQUE: Biphasic CT imaging of the abdomen and pelvis was performed with 100 ml non-ionic IV cont rast. All CT scans are performed using dose optimization technique as appropriate and may include automated exposure control or mA/KV adjustment according to patient size. FINDINGS: The lung bases are clear. The liver, spleen, pancreas, adrenal glands are within normal limits. Small punctate calculi are pres ent in both kidneys without hydronephrosis. No bowel obstruction, free air, free fluid or abscess. The appendix is normal. No evidence of signi ficant lymphadenopathy. No suspicious bony findings. IUD is present in the uterus. 4 cm left ovarian cyst present. IMPRESSION: Punctate bilateral nephrolithiasis without hydronephrosis. 4 cm left ovarian cyst, likely functional in etiology.
[2019-04-13] MEDS ORDERED: NA CHLORIDE 0.9% 1,000 ML ONE (17:06)
[2019-04-13] MEDS ORDERED: KETOROLAC 30 MG/ML INJ ONE (17:06)
--- NOTE | 2019-04-13 17:10 | ER ---
Nurse's Notes [facility] Name: Lucille Prasad Age: 23 yrs Sex: Female : 1995 Arrival Date: 04/13/2019 Time: 14:29 Bed 5 Private MD: Phil Deutsch Diagnosis: Unspecified ovarian cysts Presentation: 04/13 14:41 Presenting complaint: Patient states: LLQ abdominal pain for the past 3 weeks, patient aj1 also reports N/V. Denies diarrhea. States that she had a positive test 2 weeks ago, but when she followed up with her OB it was negative. Transition of care: patient was not received from another setting of care. Onset of symptoms was March 2019. Risk Assessment: Do you want to hurt yourself or someone else? Patient reports no desire to harm self or others. Initial Sepsis Screen: Does the patient meet any 2 criteria? No. Patient's initial sepsis screen is negative. Does the patient have a suspected source of infection? Yes: Acute abdominal pain. Care prior to arrival: None. 14:41 [facility] 14:41 Acuity: RADHA 3 aj Triage Assessment: 14:43 General: Appears in no apparent distress. uncomfortable, Behavior is calm, cooperative, aj1 appropriate for age. Pain: Complains of pain in left lower quadrant. Neuro: Level of Consciousness is awake, alert, obeys commands. Cardiovascular: Patient's skin is warm and dry. Respiratory: Airway is patent Respiratory effort is even, unlabored, Respiratory pattern is regular, symmetrical. GI: Abdomen is round non-distended, Bowel sounds present X 4 quads. Abd is soft X 4 quads Reports nausea, vomiting, Patient currently denies diarrhea. : Denies vaginal bleeding. Derm: No signs and/or symptoms reported regarding the dermatologic system. Skin is pink, warm \T\ dry. normal. Musculoskeletal: No signs and/or symptoms reported regarding the musculoskeletal system. Circulation, motion, and sensation intact. RELINER: 14:43 LMP 02/23/2019 aj Historical: - Allergies: 14:43 No Known Allergies; aj1 - Home Meds: 14:43 Klonopin Oral [Active]; Lexapro Oral [Active]; Topamax Oral [Active]; aj1 - PMHx: 14:43 Anxiety; Depression; aj1 - PSHx: 14:43 ankle surgery; aj1 - Immunization history:: Flu vaccine is up to date. - Social history:: Smoking status: Patient uses tobacco products, smokes one pack cigarettes per day. - Ebola Screening: : Patient denies travel to an Ebola-affected area in the 21 days before illness onset. Screenin:46 Abuse screen: Denies threats or abuse. Denies injuries from another. Nutritional aj1 screening: No deficits noted. Tuberculosis screening: No symptoms or risk factors identified. 17:32 Fall Risk None identified. aj1 Assessment: 14:46 General: Appears in no apparent distress. uncomfortable, Behavior is calm, cooperative, aj1 appropriate for age. Pain: Complains of pain in left lower quadrant Pain does not radiate. Neuro: Level of Consciousness is awake, alert, obeys commands. Cardiovascular: Patient's skin is warm and dry. Respiratory: Airway is patent Respiratory effort is even, unlabored, Respiratory pattern is regular, symmetrical. GI: Abdomen is round non-distended, Bowel sounds present X 4 quads. Abd is soft X 4 quads Reports nausea, vomiting, Patient currently denies diarrhea. : No signs and/or symptoms were reported regarding the genitourinary system. EENT: No signs and/or symptoms were reported regarding the EENT system. Derm: No signs and/or symptoms reported regarding the dermatologic system. Skin is pink, warm \T\ dry. normal. Musculoskeletal: No signs and/or symptoms reported regarding the musculoskeletal system. Circulation, motion, and sensation intact. 15:38 Reassessment: Patient appears in no apparent distress at this time. No changes from aj1 previously documented assessment. Patient and/or family updated on plan of care and expected duration. Pain level reassessed. Patient is alert, oriented x 3, equal unlabored respirations, skin warm/dry/pink. 16:30 Reassessment: Patient appears in no apparent distress at this time. No changes from aj1 previously documented assessment. Patient and/or family updated on plan of care and expected duration. Pain level reassessed. Patient is alert, oriented x 3, equal unlabored respirations, skin warm/dry/pink. 17:32 Reassessment: Patient appears in no apparent distress at this time. No changes from aj1 previously documented assessment. Patient and/or family updated on plan of care and expected duration. Pain level reassessed. Patient is alert, oriented x 3, equal unlabored respirations, skin warm/dry/pink. Patient states feeling better. Vital Signs: 14:43 BP 116 / 75; Pulse 83; Resp 18; Temp 97.7; Pulse Ox 97% on R/A; Weight 68.04 kg (R); aj1 Height 5 ft. 6 in. (167.64 cm) (R); 15:45 BP 97 / 62; Pulse 72; Resp 18; Pulse Ox 99% ; aj1 16:45 BP 97 / 67; Pulse 61; Resp 16; Pulse Ox 97% on R/A; aj1 17:12 BP 98 / 63; Pulse 60; Resp 16; Pulse Ox 98% on R/A; aj1 14:43 Body Mass Index 24.21 (68.04 kg, 167.64 cm) aj1 ED Course: 14:29 Patient arrived in ED. mr 14:30 Phil Deutsch MD is Private Physician. mr 14:30 Samia Collado FNP-C is [facility]. kb 14:30 Jacky Justin MD is Attending Physician. kb 14:41 Radha Prasad, ROJAS is Primary Nurse. aj1 14:43 Triage completed. aj1 14:43 Arm band placed on Patient placed in an exam room. aj1 14:46 Patient has correct armband on for positive identification. Bed in low position. Call aj1 light in reach. Side rails up X 1. 14:46 No provider procedures requiring assistance completed. aj1 15:25 Initial lab(s) drawn, by me, sent to lab. Inserted saline lock: 20 gauge in right dh3 antecubital area, using aseptic technique. Blood collected. 16:33 CT completed. Patient tolerated procedure well. Patient moved back from CT. mw3 16:34 CT Abd/Pelvis - IV Contrast Only In Process Unspecified. EDMS 17:32 IV discontinued, intact, bleeding controlled, No redness/swelling at site. Pressure aj1 dressing applied. Administered Medications: 16:59 Drug: NS 0.9% 1000 ml Route: IV; Rate: 1000 ml; Site: right antecubital; aj1 17:33 Follow up: IV Status: Completed infusion; IV Intake: 500ml ; okay to discharge patient, aj1 do not wait for bolus to finish per Octavia Collado NP 16:59 Drug: TORadol - Ketorolac 15 mg Route: IVP; Site: right antecubital; aj1 17:34 Follow up: Response: No adverse reaction; Pain is decreased aj1 Intake: 17:33 IV: 500ml; Total: 500ml. aj1 Outcome: 17:08 Discharge ordered by . marivel 17:32 Discharged to home ambulatory. aj1 17:32 Condition: good 17:32 Discharge instructions given to patient, Instructed on discharge instructions, follow up and referral plans. medication usage, Demonstrated understanding of instructions, follow-up care, medications, Prescriptions given X 2. 17:33 Patient left the ED. aj1 Signatures: Dispatcher [employer] EDMS Samia Collado, BATHHOUSE KEEPER-C BATHHOUSE KEEPER-Radha Vazquez, RN RN aj1 Caprice Medellin, Lelo 3 Emily Mancini 3
--- NOTE | 2019-04-13 17:10 | EDPHYS ---
Physician Documentation [facility] Name: Lucille Prasad Age: 23 yrs Sex: Female : 1995 Arrival Date: 04/13/2019 Time: 14:29 Bed 5 Private MD: Phil Deutsch ED Physician Jacky Justin HPI: 04/13 17:06 This 23 yrs old Female presents to ER via Ambulatory with complaints of kb Abdominal Pain, Nausea. 17:06 The patient presents with abdominal pain in the left lower quadrant. Onset: The kb symptoms/episode began/occurred 3 week(s) ago. The symptoms do not radiate. Associated signs and symptoms: none. The symptoms are described as constant. Modifying factors: The symptoms are alleviated by nothing, the symptoms are aggravated by nothing. Severity of pain: At its worst the pain was moderate in the emergency department the pain is unchanged. The patient has not experienced similar symptoms in the past. The patient has not recently seen a physician. Pt reports LLQ pain for 3-4 weeks that has gotten worse.. 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 - Social history:: Smoking status: Patient uses tobacco products, smokes one pack cigarettes per day. - Ebola Screening: : Patient denies travel to an Ebola-affected area in the 21 days before illness onset. ROS: 17:06 Constitutional: Negative for fever, chills, and weight loss, Cardiovascular: Negative kb for chest pain, palpitations, and edema, Respiratory: Negative for shortness of breath, cough, wheezing, and pleuritic chest pain, Back: Negative for injury and pain, : Negative for injury, bleeding, discharge, and swelling, MS/Extremity: Negative for injury and deformity, Skin: Negative for injury, rash, and discoloration, Neuro: Negative for headache, weakness, numbness, tingling, and seizure. 17:06 Abdomen/GI: Positive for abdominal pain, Negative for nausea, vomiting, and diarrhea, constipation, abdominal cramps, abdominal distension, anorexia. Exam: 17:06 Constitutional: This is a well developed, well nourished patient who is awake, alert, kb and in no acute distress. Head/Face: Normocephalic, atraumatic. Neck: Trachea midline, no thyromegaly or masses palpated, and no cervical lymphadenopathy. Supple, full range of motion without nuchal rigidity, or vertebral point tenderness. No Meningismus. Chest/axilla: Normal chest wall appearance and motion. Nontender with no deformity. No lesions are appreciated. Cardiovascular: Regular rate and rhythm with a normal S1 and S2. No gallops, murmurs, or rubs. Normal PMI, no JVD. No pulse deficits. Respiratory: Lungs have equal breath sounds bilaterally, clear to auscultation and percussion. No rales, rhonchi or wheezes noted. No increased work of breathing, no retractions or nasal flaring. Back: No spinal tenderness. No costovertebral tenderness. Full range of motion. Skin: Warm, dry with normal turgor. Normal color with no rashes, no lesions, and no evidence of cellulitis. MS/ Extremity: Pulses equal, no cyanosis. Neurovascular intact. Full, normal range of motion. Neuro: Awake and alert, GCS 15, oriented to person, place, time, and situation. Cranial nerves II-XII grossly intact. Motor strength 5/5 in all extremities. Sensory grossly intact. Cerebellar exam normal. Normal gait. 17:06 Abdomen/GI: Inspection: abdomen appears normal, Bowel sounds: normal, Palpation: soft, in all quadrants, mild abdominal tenderness, in the left lower quadrant. Vital Signs: 14:43 BP 116 / 75; Pulse 83; Resp 18; Temp 97.7; Pulse Ox 97% on R/A; Weight 68.04 kg (R); aj1 Height 5 ft. 6 in. (167.64 cm) (R); 15:45 BP 97 / 62; Pulse 72; Resp 18; Pulse Ox 99% ; aj1 16:45 BP 97 / 67; Pulse 61; Resp 16; Pulse Ox 97% on R/A; aj1 17:12 BP 98 / 63; Pulse 60; Resp 16; Pulse Ox 98% on R/A; aj1 14:43 Body Mass Index 24.21 (68.04 kg, 167.64 cm) aj1 MDM: 14:39 Patient medically screened. kb 17:05 Data reviewed: vital signs, nurses notes. Data interpreted: Pulse oximetry: on room air kb is 97 %. Interpretation: normal. Counseling: I had a detailed discussion with the patient and/or guardian regarding: the historical points, exam findings, and any diagnostic results supporting the discharge/admit diagnosis, lab results, radiology results, the need for outpatient follow up, an OB/Gyne specialist, to return to the emergency department if symptoms worsen or persist or if there are any questions or concerns that arise at home. 04/13 14:49 Order name: Basic Metabolic Panel; Complete Time: 15:49 kb 04/13 14:49 Order name: CBC with Diff; Complete Time: 15:44 kb 04/13 14:49 Order name: Test, Serum; Complete Time: 16:17 kb 04/13 14:57 Order name: Urine Dipstick--Ancillary (enter results); Complete Time: 15:07 ms 04/13 16:18 Order name: CT Abd/Pelvis - IV Contrast Only; Complete Time: 17:05 kb 04/13 14:49 Order name: IV Saline Lock; Complete Time: 15:29 kb 04/13 14:49 Order name: Labs collected and sent; Complete Time: 15:29 kb Administered Medications: 16:59 Drug: NS 0.9% 1000 ml Route: IV; Rate: 1000 ml; Site: right antecubital; aj1 17:33 Follow up: IV Status: Completed infusion; IV Intake: 500ml ; okay to discharge patient, aj1 do not wait for bolus to finish per Octavia Collado NP 16:59 Drug: TORadol - Ketorolac 15 mg Route: IVP; Site: right antecubital; aj1 17:34 Follow up: Response: No adverse reaction; Pain is decreased aj1 Disposition: 04/13/19 17:08 Discharged to Home. Impression: Unspecified ovarian cysts. - Condition is Stable. - Discharge Instructions: Ovarian Cyst, [id number]. - Prescriptions for Zofran 4 mg Oral Tablet - take 1 tablet by ORAL route every 6 hours As needed; 20 tablet. Diclofenac Sodium 75 mg Oral Tablet, Delayed Release (E.C.) - take 1 tablet by ORAL route 2 times per day As needed; 30 tablet. - Medication Reconciliation Form, Thank You Letter, Antibiotic Education, Prescription Opioid Use form. - Follow up: Private Physician; When: 2 - 3 days; Reason: Recheck today's complaints, Continuance of care, Re-evaluation by your physician. Follow up: Emergency Department; When: As needed; Reason: Worsening of condition. Signatures: Dispatcher [employer] EDTX Samia Collado, DISTRIBUTION TRANSFORMER ASSEMBLER-C DISTRIBUTION TRANSFORMER ASSEMBLER-Radha Vazquez RN RN aj1 Corrections: (The following items were deleted from the chart) 17:33 17:08 04/13/2019 17:08 Discharged to Home. Impression: Unspecified ovarian cysts. aj1 Condition is Stable. Discharge Instructions: Ovarian Cyst, [id number]. Prescriptions for Zofran 4 mg Oral Tablet - take 1 tablet by ORAL route every 6 hours As needed; 20 tablet, Diclofenac Sodium 75 mg Oral Tablet, Delayed Release (E.C.) - take 1 tablet by ORAL route 2 times per day As needed; 30 tablet. and Forms are Medication Reconciliation Form, Thank You Letter, Antibiotic Education, Prescription Opioid Use. Follow up: Private Physician; When: 2 - 3 days; Reason: Recheck today's complaints, Continuance of care, Re-evaluation by your physician. Follow up: Emergency Department; When: As needed; Reason: Worsening of condition. kb
[2019-04-13 17:50] VITALS: TEMP 97.7
[2019-04-13 17:54] VITALS: BP 98/63; O2SAT 98
== END 2019-04-13 17:33 | disposition home or self-care (01) ==
LOC: ER 14:27
DX: N83.202 Unspecified ovarian cyst, left side (principal); N20.0 Calculus of kidney; F41.9 Anxiety disorder, unspecified; F32.9 Major depressive disorder, single episode, unspecified; F17.210 Nicotine dependence, cigarettes, uncomplicated
CPT/HCPCS: 36415; 74177; 80048; 81003; 84703; 85025; 96361; 96374; 99284; J7030; Q9967

== ENCOUNTER 2023-05-08 10:33 | Emergency (ER) | payer OTHER ==
--- OUTSIDE RECORDS SUMMARY | 2023-05-08 10:37 | XMS REPORT | Continuity of Care Document ---
:1995 Author Organization [facility] t Address [address] [facility] [address] [place] [address] Care Team Providers Name Role Phone Janis Moody Primary Care Physician Johnny JOSEPH, Gee Attending Clinician GEE COLBY Attending Clinician Unavailable Doctor Unassigned, [place] Attending Clinician Unavailable Provider, [facility] Attending Clinician Unavailable Nohemy Lora Attending Clinician NOHEMY CHANEY Attending Clinician Unavailable Lab, Adc Fam Pob I Attending Clinician Unavailable Brittaney Fuentes Attending Clinician [phone] BRITTANEY GREWAL Attending Clinician Unavailable Jayjay Molina Attending Clinician Janis Moody Attending Clinician Payers Payer Name Policy Type Policy Number Effective Date Expiration Date Madeleine MARTINEZS [id number] 2014 2014 HEALTH 00:00:00 00:00:00 Problems Condition Condition Condition Status Onset Resolution Last Treating Co mments Source Name Details Category Date Date Treatment Clinician Date Excessive Excessive Disease Active Uni vers or or 9-09 ity of frequent frequent 00:00: [place] menstruati menstruati 00 Me dical on on Branch Vaginal Vaginal Disease Active Univers discharge discharge 8-19 ity of 00:00: [place] 00 [facility] Counseling Counseling Disease Active U nivers for for 8-19 ity of control control 00:00: [place] regarding regarding 00 Medi evert intrauteri intrauteri Br anch ne device ne device (IUD) (IUD) Screen for Screen for Disease Active U nivers sexually sexually 8- [place] transmit[place] diseases d diseases 00 Pr dical Branch Mental Mental Disease Active [facility] health health 7-17 ity of disorder disorder 00:00: [place] 00 [facility] Family Family Disease Active 2016-09 Univers planning, planning, 2-06 ity of IUD IUD 00:00: [place] (intrauter (intrauter 00 Me dical ine ine Branch device) device) check/rein check/rein sertion/re sertion/re moval moval Contracept Contracept Disease Active 2016-09 U nivers greer greer 0-11 [place] [facility] BMI BMI Disease Active 2016-09 Univers 25.0-25.9, 25.0-25.9, 0-11 it y of adult adult 00:00: [place] 00 [facility] Tobacco Tobacco Disease Active 2016-09 Univers use use 0-11 ity of disorder disorder 00:00: [place] 00 [facility] Irregular Irregular Disease Active 2016-09 Uni vers menstrual menstrual 0-11 ity of cycle cycle 00:00: [place] 00 [facility] Allergies, Adverse Reactions, Alerts Allergy Allergy Status Severity Reaction(s) Onset Inactive Treating Comm ents Source Name Type Date Date Clinician Soap Drug Active Other - See Unive rs Allergy comments 09-28 ity of 00:00: [place] 00 [facility] SOAP DRUG Active High Other-Cmnt Univer s INGREDI 1-05 ity of 00:00: [place] [facility] Social History Social Habit Start Date Stop Date Quantity Comments Source History of tobacco 2010-02-01 Cigarette Smoker University of use 00:00:00 [facility] Exposure to 2022-05-23 2022-06-02 Not sure University of SARS-CoV-2 (event) 00:00:00 09:00:00 [facility] Alcohol intake 2022-06-02 2022-06-02 Current University of 00:00:00 00:00:00 non-drinker of [facility] alcohol Branch (finding) Cigarettes smoked 2020-07-01 2020-07-01 Univers ity of current (pack per 00:00:00 00:00:00 [facility] ed) - Reported Branch Tobacco use and 2020-07-01 2020-07-01 Smokeless Universit y of exposure 00:00:00 00:00:00 tobacco non-user [facility] dical [place] Cigarette 2020-07-01 2020-07-01 University of pack-years 00:00:00 00:00:00 [facility] Tobacco Comment 2017-07-04 2017-07-04 half pack/day Univer sity of 00:00:00 00:00:00 [facility] Sex Ass[birth year] At [birth year] Universit y of 00:00:00 00:00:00 [facility] Smoking Status Start Date Stop Date Source Smokes tobacco daily 2020-07-01 00:00:00 Univers ity of [facility] Medications Ordered Filled Start Stop Current Ordering Indication Dosage Frequency Signature Comments Components Source Medication Medication Date Date Medication? 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 Repeat dose at 0700 am on the morning of IUD insertion for cervical softening; not for abortive purposes. Negative POCT test. Do not take if your menstrual cycle has not started. miSOPROStoL Yes [id number] Take 1 Univers 200 mcg 8-19 tablet, by ity of tablet 00:00: mouth, at [place] [address] bedtime Medical the night Branch before IUD insertion procedure. Repeat dose at 0700 am on the morning of IUD insertion for cervical softening; not for abortive purposes. Negative POCT test. Do not take if your menstrual cycle has not started. Immunizations Ordered Filled Immunization Date Status Comments [facility] e Immunization Name Name TDAP 2017-07-04 Completed University of 00:00:00 [facility] TDAP 2017-07-04 Completed University of 00:00:00 [facility] HPV 2017-06-04 Completed University of 00:00:00 [facility] HPV 2017-06-04 Completed University of 00:00:00 [facility] HPV 2017-02-01 Completed University of 00:00:00 [facility] HPV 2017-02-01 Completed University of 00:00:00 [facility] HPV 2016-12-02 Completed University of 00:00:00 [facility] HPV 2016-12-02 Completed University of 00:00:00 [facility] Influenza Virus 2014-07-06 Completed Universit y of Vaccine (3+ yrs) 00:00:00 [facility] Influenza Virus 2014-07-06 Completed Universit y of Vaccine (3+ yrs) 00:00:00 [facility] Vital Signs Vital Name Observation Time Observation Value Comments Source Systolic blood 2022-06-02 15:17:00 106 mm[Hg] Univer sity of pressure [facility] Diastolic blood 2022-06-02 15:17:00 66 mm[Hg] Unive rsity of [facility] Heart rate 2022-06-02 15:17:00 75 /min [facility] Body temperature 2022-06-02 15:17:00 36.72 Veren[facility] Respiratory rate 2022-06-02 15:17:00 18 /min [facility] Body height 2022-06-02 15:17:00 170.2 cm [facility] Body weight 2022-06-02 15:17:00 73.029 kg [facility] BMI 2022-06-02 15:17:00 25.22 kg/m2 [facility] Procedures Procedure Date / Time Performed Performing Clinician Sour e POCT TEST 2022-06-02 15:20:00 Gee Colby ersity [facility] DISCLOSURE AND 2022-06-02 05:01:00 Doctor Lorena Martin sitgino [facility] CONSENT, MEDICAL AND Name Medical [facility] SURGICAL PROCEDURES Encounters Start End Encounter Admission Attending Care Care Encounter Source Date/Time Date/Time Type Type Clinicians Facility Department ID 2022-06-02 2022-06-02 Office LEFTY Colby 1.2.840.114 [id number] Univers 10:45:00 10:48:41 Visit Gee LOWERY [id number] it y of WOMEN'S 4.2.7.2.686 [facility] [place] [id number] [facility] 134 Branch 2022-06-02 2022-06-02 Outpatient R GEE COLBY [facility] B [id number] Univers 10:45:00 10:48:41 GEE COLBY [facility] 2022-06-02 2022-06-02 Outpatient R GEE COLBY [facility] B [id number] Univers 10:45:00 10:45:00 GEE COLBY [facility] 2022-06-02 2022-06-02 Orders Doctor KIM [id number] Univers 00:00:00 00:00:00 Only Unassigned, AMRIE [id number] ity of [place] [facility] 4.2.7.2.686 [place] [phone] [facility] 009 Branch 2022-05-26 2022-05-26 Outpatient R GEE COLBY [facility] B [id number] Univers 15:30:00 15:30:00 GEE COLBY [facility] 2022-05-19 2022-05-19 Outpatient R GEE COLBY [facility] B [id number] Univers 15:30:00 15:30:00 [facility] 2022-05-15 2022-05-15 [facility] [id number] Univers 00:00:00 00:00:00 Management Gee LOWERY [id number] it[place] of [place] 4[place]2.686 [place] [facility] [id number] [address] 2022-05-12 2022-05-12 Outpatient R GEE COLBY [facility] B [id number] Univers 16:00:00 16:00:00 GEE COLBY [facility] 2022-05-12 2022-05-12 Outpatient R GEE COLBY [facility] B [id number] Univers 11:30:00 12:10:45 IRMAGEE MICHEL [facility] 2022-05-12 2022-05-12 Office Johnny [facility] 1.2.840.114 [id number] Univers 11:30:00 12:10:45 Visit Gee LOW[place] [id number] it y [place] [id number] [address] 2020-10-26 2020-10-26 Urgent Provider, [facility] [id number] Univers 10:55:05 11:22:32 Care Nohemy Chaney [id number] ity of [place] 4.2.7.2.686 [place] as Professio [phone] [address] Office Building [address] 2020-10-26 2020-10-26 Outpatient Balta CHANEY [facility] [id number] Univers 11:00:00 11:00:00 NOHEMY collado [facility] 2020-08-31 2020-08-31 Outpatient Balta CHANEY [facility] [id number] Univers 10:00:00 10:00:00 NOHEMY collado [facility] 2020-08-27 2020-08-27 Outpatient R [facility] [id number] Univers 13:40:00 13:40:00 NOHEMY ity of [facility] 2020-08-27 2020-08-27 Laboratory Lab, Adc Fam Pob I [facility] 1.2. 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 [id number] ity of [facility] 4.2.7.2.686 [place] as MATERNAL [phone] Med ical & CHILD [address] [place] [address] 2020-07-01 2020-07-01 Office [facility] [id number] Univers 13:54:18 14:52:46 Visit Brittaney C BUILDINGS [employer] GROUNDS SUPERINTENDENT [id number] ity of [facility] 4.2.7.2.686 [place] as MATERNAL [phone] Med ical & CHILD [address] [place] [address] 2020-07-01 2020-07-01 Outpatient R [facility] [id number] Univers 13:45:00 13:45:00 BRITTANEY collado o f [facility] 2020-07-01 2020-07-01 Orders Doctor JUDY 1.2.840.114 [id number] Univers 00:00:00 00:00:00 Only Unassigned, MARIE 350.1.13.10 ity of [place] [facility] 4.2.7.2.686 [place] as [id number] [address] 2020-07-01 2020-07-01 Letter [facility] [id number] Univers 00:00:00 00:00:00 (Out) Brittaney C 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 840.114 [id number] Univers 09:18:03 09:38:03 Only Nohemy Chaney [facility] 350.1.13.10 ity [facility] 4.2.7.2.686 [place] as Professio [phone] [facility] [address] [place] [address] 2019-04-18 2019-04-18 Patient Van [facility] [id number] Univers 00:00:00 00:00:00 Secure Msg Janis N BUILDINGS [employer] GROUNDS SUPERINTENDENT [id number] ity of [facility] 4.2.7.2.686 [place] as MATERNAL [phone] [facility] ical & CHILD [address] [place] [address] 2014-05-12 2014-05-12 Orders Doctor JUDY 1.2.840.114 [id number] Univers 00:00:00 00:00:00 Only Unassigned, MARIE 350.1.13.10 [facility] 4.2.7.2.686 [place] as [phone] [address] Results Test Description Test Time Test Comments Results Result Comments Source POCT TEST 2022-06-02 15:20:00 Test Item Value Reference Range Interpretation Comme nts POCT PREG (test code = 1605) Negative On board controls acceptable with C Line (test code = 3574) Yes POCT PREG LOT # (test code = 3575) POCT PREG TEST DATE (test code = 3576) [facility]
--- NOTE | 2023-05-08 11:00 | ER ---
Nurse's Notes [facility] Name: Lucille Prasad Age: 27 yrs Sex: Female : 1995 Arrival Date: 05/08/2023 Time: 10:33 Bed 11 Private MD: Diagnosis: Medial epicondylitis, right elbow;Pain in right elbow Presentation: 05/08 10:40 Chief complaint: Patient states: she has been having right elbow pain for approx one ap3 month, however the patient states it started hurting more this morning. patient denies any trauma to the area. Coronavirus screen: At this time, the client does not indicate any symptoms associated with coronavirus-19. Ebola Screen: No symptoms or risks identified at this time. Initial Sepsis Screen: Does the patient meet any 2 criteria? No. Patient's initial sepsis screen is negative. Does the patient have a suspected source of infection? No. Patient's initial sepsis screen is negative. Risk Assessment: Do you want to hurt yourself or someone else? Patient reports no desire to harm self or others. Onset of symptoms is unknown. 10:40 Method Of Arrival: Ambulatory ap3 10:40 Acuity: RADHA 4 ap3 Triage Assessment: 10:42 General: Appears in no apparent distress. Behavior is calm, cooperative, appropriate ap3 for age. Pain: Complains of pain in right elbow Pain currently is 4 out of 10 on a pain scale. at worst was 8 out of 10 on a pain scale. Neuro: Level of Consciousness is awake, alert, obeys commands, Oriented to person, place, time, situation. Cardiovascular: Patient's skin is warm and dry. Respiratory: Airway is patent Respiratory effort is even, unlabored, Respiratory pattern is regular, symmetrical. Musculoskeletal: Reports pain in right elbow. 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 Last tetanus immunization: unknown. - Social history:: Smoking status: Reported history of juuling and/or vaping. Screenin:43 [facility] ED Fall Risk Assessment (Adult) History of falling in the last 3 months, ap3 including since admission No falls in past 3 months (0 pts). Abuse screen: Denies threats or abuse. Nutritional screening: No deficits noted. Tuberculosis screening: No symptoms or risk factors identified. Assessment: 11:14 General: Appears in no apparent distress. comfortable, Behavior is calm, cooperative. ss Pain: Complains of pain in right elbow Pain currently is 4 out of 10 on a pain scale. Is continuous. Neuro: Level of Consciousness is awake, alert, obeys commands. Respiratory: Airway is patent Respiratory effort is even, unlabored, Respiratory pattern is regular, symmetrical. Derm: Skin is intact, is healthy with good turgor, Skin is pink, warm \T\ dry. normal. Musculoskeletal: Range of motion: intact in all extremities. Vital Signs: 10:40 BP 119 / 80; Pulse 70; Resp 17; Temp 97.9; Pulse Ox 100% ; Weight 72.57 kg; Pain 4/10; ap3 10:40 Pain Scale: Adult ap3 ED Course: 10:37 Patient arrived in ED. im 10:38 Keysha Duenas FNP-C [facility]. snw 10:38 Gregg Dyson MD is Attending Physician. snw 10:41 Triage completed. ap3 10:43 Arm band placed on right wrist. ap3 11:07 Jeannette May RN is Primary Nurse. ss 11:08 No provider procedures requiring assistance completed. Patient did not have IV access ss during this emergency room visit. Administered Medications: 11:06 Not Given (Patient Refused): HYDROcodone-acetaminophen PO 5 mg-325 mg 1 tabs PO once snw 11:08 Drug: predniSONE PO 40 mg Route: PO; ss 11:08 Follow up: Response: Medication administered at discharge. ss 11:08 Drug: Famotidine PO 20 mg Route: PO; ss 11:08 Follow up: Response: No adverse reaction ss Outcome: 11:00 Discharge ordered by . snw 11:16 Discharged to home ambulatory. ss 11:16 Condition: good 11:16 Discharge instructions given to patient, Instructed on discharge instructions, follow up and referral plans. medication usage, Demonstrated understanding of instructions, follow-up care, medications, Prescriptions given X 2. 11:16 Patient left the ED. ss Signatures: Keysha Duenas FNP-C MEAT GRINDER-Csnw Jeannette May, ROJAS RN ss Alissa Johnson RN RN ap3 Vickie Giraldo Corrections: (The following items were deleted from the chart) 10: PMHx: Depression; ap3 ap3 10: PMHx: Anxiety; ap3 ap3
--- NOTE | 2023-05-08 11:00 | EDPHYS ---
Physician Documentation [facility] Name: Lucille Prasad Age: 27 yrs Sex: Female : 1995 Arrival Date: 05/08/2023 Time: 10:33 Bed 11 Private MD: ED Physician Gregg Dyson HPI: 05/08 11:09 This 27 yrs old Female presents to ER via Ambulatory with complaints of Elbow Injury. snw 11:09 The patient or guardian complains of pain, that is acute. The complaints affect the snw right bicep and right antecubital area. 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 Onset: The symptoms/episode began/occurred acutely. Treatment prior to arrival includes: forearm strap splint. Modifying factors: The symptoms are alleviated by remaining still, the symptoms are aggravated by lifting weight. Associated signs and symptoms: Pertinent positives: pain, swelling, of the right elbow. Severity of symptoms: At their worst the symptoms were moderate. The patient has experienced a previous episode, but today's symptoms are worse. The patient has not recently seen a physician. [employer]: 10:43 LMP 05/02/2023 ap3 Historical: - Allergies: 10:41 No Known Allergies; ap3 - Home Meds: 10:41 None [Active]; ap3 - PMHx: 10:41 None; ap3 - Immunization history:: Client reports having NOT received the Covid vaccine. Last tetanus immunization: unknown. - Social history:: Smoking status: Reported history of juuling and/or vaping. ROS: 11:09 Constitutional: Negative for fever, chills, and weight loss, Eyes: Negative for injury, snw pain, redness, and discharge, ENT: Negative for injury, pain, and discharge, Neck: Negative for injury, pain, and swelling, Cardiovascular: Negative for chest pain, palpitations, and edema, Respiratory: Negative for shortness of breath, cough, wheezing, and pleuritic chest pain, Abdomen/GI: Negative for abdominal pain, nausea, vomiting, diarrhea, and constipation, Back: Negative for injury and pain, : Negative for injury, bleeding, discharge, and swelling, Skin: Negative for injury, rash, and discoloration, Neuro: Negative for headache, weakness, numbness, tingling, and seizure, Psych: Negative for depression, anxiety, suicide ideation, homicidal ideation, and hallucinations. 11:09 MS/extremity: Positive for pain, swelling, tenderness, of the right elbow. Exam: 11:09 Constitutional: This is a well developed, well nourished patient who is awake, alert, snw and in no acute distress. Head/Face: Normocephalic, atraumatic. Eyes: Pupils equal round and reactive to light, extra-ocular motions intact. Lids and lashes normal. Conjunctiva and sclera are non-icteric and not injected. Cornea within normal limits. Periorbital areas with no swelling, redness, or edema. Neck: Trachea midline, no thyromegaly or masses palpated, and no cervical lymphadenopathy. Supple, full range of motion without nuchal rigidity, or vertebral point tenderness. No Meningismus. Chest/axilla: Normal chest wall appearance and motion. Nontender with no deformity. No lesions are appreciated. Cardiovascular: Regular rate and rhythm with a normal S1 and S2. No gallops, murmurs, or rubs. Normal PMI, no JVD. No pulse deficits. Respiratory: Lungs have equal breath sounds bilaterally, clear to auscultation and percussion. No rales, rhonchi or wheezes noted. No increased work of breathing, no retractions or nasal flaring. Abdomen/GI: Soft, non-tender, with normal bowel sounds. No distension or tympany. No guarding or rebound. No evidence of tenderness throughout. Back: No spinal tenderness. No costovertebral tenderness. Full range of motion. Skin: Warm, dry with normal turgor. Normal color with no rashes, no lesions, and no evidence of cellulitis. Neuro: Awake and alert, GCS 15, oriented to person, place, time, and situation. Cranial nerves II-XII grossly intact. Motor strength 5/5 in all extremities. Sensory grossly intact. Cerebellar exam normal. Normal gait. Psych: Awake, alert, with orientation to person, place and time. Behavior, mood, and affect are within normal limits. 11:09 Musculoskeletal/extremity: Extremities: grossly normal except: noted in the right medial elbow: swelling, tenderness. Vital Signs: 10:40 BP 119 / 80; Pulse 70; Resp 17; Temp 97.9; Pulse Ox 100% ; Weight 72.57 kg; Pain 4/10; ap3 10:40 Pain Scale: Adult ap3 MDM: 10:51 Patient medically screened. snw 11:13 Differential diagnosis: tendonitis. Data reviewed: vital signs, nurses notes. I snw considered the following discharge prescriptions or medication management in the emergency department Medications were administered in the Emergency Department. See MAR. Counseling: I had a detailed discussion with the patient and/or guardian regarding: the historical points, exam findings, and any diagnostic results supporting the discharge/admit diagnosis, the need for outpatient follow up, for definitive care, to return to the emergency department if symptoms worsen or persist or if there are any questions or concerns that arise at home. Special discussion: Based on the history and exam findings, there is no indication for further emergent testing or inpatient evaluation. I discussed with the patient/guardian the need to see the orthopedic surgeon for further evaluation of the symptoms. Administered Medications: 11:06 Not Given (Patient Refused): HYDROcodone-acetaminophen PO 5 mg-325 mg 1 tabs PO once snw 11:08 Drug: predniSONE PO 40 mg Route: PO; ss 11:08 Follow up: Response: Medication administered at discharge. ss 11:08 Drug: Famotidine PO 20 mg Route: PO; ss 11:08 Follow up: Response: No adverse reaction ss Disposition: 12:20 Co-signature as Attending Physician, Gregg Dyson MD I reviewed the patient's care rn provided by the Advanced Practice Provider and agree with the diagnosis and treatment plan. Disposition Summary: 05/08/23 11:00 Discharge Ordered Location: Home snw Condition: Stable snw Diagnosis - Medial epicondylitis, right elbow snw - Pain in right elbow snw Followup: snw - With: Emergency Department - When: As needed - Reason: Worsening of condition Followup: snw - With: Private Physician - When: 2 - 3 days - Reason: Recheck today's complaints, Continuance of care, Re-evaluation by your physician Discharge Instructions: - Discharge Summary Sheet snw - Joint Pain snw - Tendinitis snw - How to Use Cold Therapy snw - Heat Therapy snw - [facility] snw Forms: - Work release form snw - Medication Reconciliation Form snw - Thank You Letter snw - Antibiotic Education snw - Prescription Opioid Use snw - Patient Portal Instructions snw - Leadership Thank You Letter snw Prescriptions: - Diclofenac Sodium 75 mg Oral Tablet Sustained Release - take 1 tablet by ORAL route 2 times per day; 30 tablet; Refills: 0, Product snw Selection Permitted - orphenadrine citrate 100 mg Oral Tablet Sustained Release - take 1 tablet by ORAL route 2 times per day As needed; 20 tablet; Refills: 0, snw Product Selection Permitted Signatures: Keysha Duenas, OXYACETYLENE BURNER-C OXYACETYLENE BURNER-Csnw Gregg Dyson MD MD rn Blanchard, Shelby, RN RN ss Prokisch, Amanda, RN RN ap3 Corrections: (The following items were deleted from the chart) 10:42 10:41 PMHx: Depression; ap3 ap3 10:42 10:41 PMHx: Anxiety; ap3 ap3
[2023-05-08] MEDS ORDERED: predniSONE 20 MG TAB ONE (11:12)
[2023-05-08] MEDS ORDERED: FAMOTIDINE 20 MG TAB ONE (11:12)
[2023-05-08] MEDS ORDERED: HYDROCODONE/APAP 5/325 MG TAB ONE (11:13)
[2023-05-08 12:01] VITALS: BP 119/80; TEMP 97.9; O2SAT 100
== END 2023-05-08 11:16 | disposition home or self-care (01) ==
LOC: ER 10:33
DX: M77.01 Medial epicondylitis, right elbow (principal)
CPT/HCPCS: 99283; J7512